=== PATIENT | male | born 1980 | race African-American/Black ===

== ENCOUNTER 2022-06-04 15:14 | Emergency (ER) | payer MEDICAID, OTHER ==
[~2022-06-04] VITALS: Ht 172.7 cm; Wt 105.0 kg
[2022-06-04 15:19] VITALS: BP 139/84
== END 2022-06-04 19:04 | disposition left against medical advice (07) ==
LOC: ER 15:14
DX: Z53.21 Procedure and treatment not carried out due to patient leaving prior to being seen by health care provider (principal)